=== PATIENT | male | born 1945 | race Caucasian/White ===

== ENCOUNTER 2021-09-12 17:44 | Outpatient (CLI) | payer MEDICARE | END 2021-09-12 17:45 | disposition short-term general hospital (02) | LOC: EMS 17:44 | DX: K92.0 Hematemesis (principal); R10.9 Unspecified abdominal pain; R53.1 Weakness | CPT/HCPCS: A0425; A0427 ==

== ENCOUNTER 2021-09-20 16:53 | Outpatient (CLI) | payer MEDICARE ==
[2021-09-20 17:15] LABS: BASOPHILS % (AUTO) 0.6 %; EOSINOPHILS # (AUTO) 0.1 10^3/uL (0.0-0.7); EOSINOPHILS % (AUTO) 0.8 %; HCT - HEMATOCRIT 23.5 % (42.0-52.0); HGB - HEMOGLOBIN 7.8 g/dL (14.0-18.0); LYMPHOCYTES # (AUTO) 1.3 10^3/uL (1.5-3.5); LYMPHOCYTES % (AUTO) 19.4 %; MEAN CORPUSCULAR HEMOGLOBIN 30.2 pg (27.0-31.0); MEAN CORPUSCULAR HGB CONC 33.2 g/dL (32.0-36.0); MEAN CORPUSCULAR VOLUME 91.1 fL (80.0-94.0); MEAN PLATELET VOLUME 8.7 fL (7.4-11.4); MONOCYTES # (AUTO) 0.5 10^3/uL (0.0-1.0); MONOCYTES % (AUTO) 8.2 %; NEUTROPHILS # (AUTO) 4.6 10^3/uL (1.5-6.6); NEUTROPHILS % (AUTO) 70.2 %; PLT - PLATELET COUNT 233 10^3/uL (130-450); RED BLOOD COUNT 2.58 10^6/uL (4.70-6.10); RED CELL DISTRIBUTION WIDTH 12.6 % (12.0-15.0); WHITE BLOOD COUNT 6.6 x10^3/uL (4.8-10.8)
== END 2021-09-20 16:54 | disposition home or self-care (01) ==
LOC: LAB 16:53
PROVIDERS: ATTEND Internal Medicine Transplant Hepatology
DX: K92.1 Melena (principal)
CPT/HCPCS: 36415; 85025

== ENCOUNTER 2021-10-06 08:02 | Outpatient (CLI) | payer MEDICARE ==
[2021-10-06 14:54] LABS: % IRON SATURATION 6 % (20-50); IRON 23 ug/dL (45-182); TOTAL IRON BINDING CAPACITY 393 ug/dL (250-450); TRANSFERRIN 281 mg/dL (180-329)
== END 2021-10-06 08:03 | disposition home or self-care (01) ==
LOC: LAB.S 08:02
PROVIDERS: ATTEND Internal Medicine Transplant Hepatology
DX: D64.9 Anemia, unspecified (principal)
CPT/HCPCS: 36415; 83540; 84466; 85025

== ENCOUNTER 2021-10-11 13:31 | Outpatient (CLI) | payer MEDICARE ==
[2021-10-11 19:54] LABS: BASOPHILS % (AUTO) 0.7 %; EOSINOPHILS # (AUTO) 0.1 10^3/uL (0.0-0.7); EOSINOPHILS % (AUTO) 1.8 %; HCT - HEMATOCRIT 29.2 % (42.0-52.0); HGB - HEMOGLOBIN 9.3 g/dL (14.0-18.0); LYMPHOCYTES # (AUTO) 1.1 10^3/uL (1.5-3.5); LYMPHOCYTES % (AUTO) 20.4 %; MEAN CORPUSCULAR HEMOGLOBIN 29.7 pg (27.0-31.0); MEAN CORPUSCULAR HGB CONC 31.8 g/dL (32.0-36.0); MEAN CORPUSCULAR VOLUME 93.3 fL (80.0-94.0); MEAN PLATELET VOLUME 10.2 fL (7.4-11.4); MONOCYTES # (AUTO) 0.6 10^3/uL (0.0-1.0); MONOCYTES % (AUTO) 10.7 %; NEUTROPHILS # (AUTO) 3.6 10^3/uL (1.5-6.6); PLT - PLATELET COUNT 147 10^3/uL (130-450); RED BLOOD COUNT 3.13 10^6/uL (4.70-6.10); RED CELL DISTRIBUTION WIDTH 13.8 % (12.0-15.0); WHITE BLOOD COUNT 5.4 x10^3/uL (4.8-10.8)
== END 2021-10-11 13:32 | disposition home or self-care (01) ==
LOC: LAB.S 13:31
PROVIDERS: ATTEND Internal Medicine Transplant Hepatology
DX: D64.9 Anemia, unspecified (principal)
CPT/HCPCS: 36415; 85025

== ENCOUNTER 2021-10-16 09:20 | Outpatient (CLI) | payer MEDICARE ==
[2021-10-16 14:58] LABS: ALBUMIN 3.8 g/dL (3.2-5.5); ALBUMIN/GLOBULIN RATIO 1.4 (1.0-2.2); ALKALINE PHOSPHATASE 47 IU/L (42-121); ALT ALANINE AMINOTRANSFERASE 38 IU/L (10-60); AST ASPARTATE AMINOTRANSFERASE 32 IU/L (10-42); BILIRUBIN,TOTAL 0.5 mg/dL (0.2-1.0); BUN - BLOOD UREA NITROGEN 25 mg/dL (6-20); CALCIUM 9.2 mg/dL (8.5-10.3); CARBON DIOXIDE - CO2 26 mmol/L (21-32); CHLORIDE 106 mmol/L (101-111); CHOL/HDL RATIO 1.9 (<5.0); CHOLESTEROL 107 mg/dL; CREATININE 1.8 mg/dL (0.6-1.2); GFR - MDRD 37 (>89); GLUCOSE 123 mg/dL (70-100); HDL CHOLESTEROL 56 mg/dL; LDL CHOLESTEROL,CALCULATED 42 mg/dL; LDL/HDL RATIO 0.8 (<3.6); POTASSIUM 4.5 mmol/L (3.5-5.0); SODIUM 138 mmol/L (135-145); TOTAL PROTEIN 6.5 g/dL (6.7-8.2); TRIGLYCERIDES 43 mg/dL; VLDL CHOLESTEROL 9 mg/dL
[2021-10-16 15:17] LABS: CREATININE,URINE 113.9 mg/dL; MICROALBUM/CREATININE RATIO,UR 20.2 ug/mg (<30.0); MICROALBUMIN,URINE 2.3 mg/dL (0-300.0)
[2021-10-16 20:14] LABS: ESTIMATED AVERAGE GLUCOSE 120 mg/dL (70-100); HEMOGLOBIN A1c% 5.8 % (4.27-6.07)
== END 2021-10-16 09:21 | disposition home or self-care (01) ==
LOC: LAB.S 09:20
PROVIDERS: ATTEND Internal Medicine
DX: E11.649 Type 2 diabetes mellitus with hypoglycemia without coma (principal); E11.42 Type 2 diabetes mellitus with diabetic polyneuropathy; Z79.4 Long term (current) use of insulin
CPT/HCPCS: 36415; 80053; 80061; 82043; 82570; 83036; 83721

== ENCOUNTER 2021-12-18 10:52 | Outpatient (CLI) | payer MEDICARE ==
[2021-12-18 15:09] LABS: % IRON SATURATION 65 % (20-50); IRON 282 ug/dL (45-182); TOTAL IRON BINDING CAPACITY 437 ug/dL (250-450); TRANSFERRIN 312 mg/dL (180-329)
== END 2021-12-18 10:53 | disposition home or self-care (01) ==
LOC: LAB.S 10:52
PROVIDERS: ATTEND Internal Medicine Gastroenterology
DX: D50.8 Other iron deficiency anemias (principal)
CPT/HCPCS: 36415; 83540; 84466

== ENCOUNTER 2021-12-21 09:18 | Outpatient (CLI) | payer MEDICARE ==
[2021-12-21 14:12] LABS: BASOPHILS # (AUTO) 0.1 10^3/uL (0.0-0.1); EOSINOPHILS # (AUTO) 0.1 10^3/uL (0.0-0.7); EOSINOPHILS % (AUTO) 1.6 %; HCT - HEMATOCRIT 38.7 % (42.0-52.0); LYMPHOCYTES % (AUTO) 12.9 %; MEAN CORPUSCULAR HEMOGLOBIN 27.6 pg (27.0-31.0); MEAN PLATELET VOLUME 10.9 fL (7.4-11.4); MONOCYTES # (AUTO) 0.6 10^3/uL (0.0-1.0); MONOCYTES % (AUTO) 8.7 %; NEUTROPHILS # (AUTO) 5.6 10^3/uL (1.5-6.6); NEUTROPHILS % (AUTO) 75.5 %; PLT - PLATELET COUNT 180 10^3/uL (130-450); RED BLOOD COUNT 4.35 10^6/uL (4.70-6.10); RED CELL DISTRIBUTION WIDTH 14.4 % (12.0-15.0); WHITE BLOOD COUNT 7.4 x10^3/uL (4.8-10.8)
== END 2021-12-21 09:19 | disposition home or self-care (01) ==
LOC: LAB.S 09:18
PROVIDERS: ATTEND Internal Medicine Gastroenterology
DX: D50.8 Other iron deficiency anemias (principal)
CPT/HCPCS: 36415; 85025

== ENCOUNTER 2022-05-25 09:21 | Emergency (ER) | payer MEDICARE ==
--- NOTE | 2022-05-25 09:34 | ED Physician Documentation ---
PD HPI DYSPNEA - Stated complaint Stated Complaint: SOA/SWELLING - History obtained from History obtained from: Patient - History of Present Illness Timing - onset: How many months ago (few months of fatigue and GREEN, orthopnea. No chest pain. Seen by his firer helper ear this week and rx torsemide diuretic. He had not been on diuretics previously. Had not noted any improvement as yet, with 2 days of the oral diuretic.) Timing - duration: Weeks Timing - details: Gradual onset, Still present Inciting event(s): No: URI, Immobilization/travel Improved by: Inhaler/neb, Rest Worsened by: Laying flat, Coughing Associated symptoms: Cough, Chest pain / discomfort, Bilateral edema. No: Fever, Hemoptysis, Wheezing Similar symptoms before: Has not had sx before Recently seen: Clinic Review of Systems Constitutional: denies: Fever, Chills Nose: denies: Rhinorrhea / runny nose, Congestion Throat: denies: Sore throat Respiratory: denies: Cough GI: denies: Vomiting, Diarrhea, Hematemesis, Bloody / black stool : denies: Dysuria Skin: denies: Rash Musculoskeletal: reports: Extremity swelling Neurologic: reports: Generalized weakness PD PAST MEDICAL HISTORY - Past Medical History Cardiovascular: Hypertension, Valve disorder Respiratory: None Neuro: None Endocrine/Autoimmune: None - Present Medications Home Medications: Ambulatory Orders Medication Instructions Recorded Confirmed Apixaban [Eliquis] 5 mg PO DAILY PM 05/25/22 05/25/22 Aspirin [Cochise Aspirin] 81 mg PO DAILY PM 05/25/22 05/25/22 Calcium Carbonate/Vitamin D3 05/25/22 [Calcium 500 mg Chewable Tablet] Docusate Sodium 100Mg Capsule 05/25/22 [Colace 100Mg Capsule] Dulaglutide [Trulicity] 05/25/22 Furosemide [Lasix] 40 mg PO DAILY PM 05/25/22 05/25/22 Latanoprost/Pf [Latanoprost 0.005% 05/25/22 Eye Drop] Lifitegrast [Xiidra] 05/25/22 Metoprolol Succinate [Toprol Xl] 1 tab PO DAILY 05/25/22 05/25/22 Pantoprazole Sodium [Protonix] 40 05/25/22 Ranolazine [Ranexa] 1 tab PO BID 05/25/22 05/25/22 Rosuvastatin Calcium [Crestor] 05/25/22 - Allergies Allergies/Adverse Reactions: Allergies Allergy/AdvReac Type Severity Reaction Status Date / Time No Known Drug Allergies Allergy Verified 05/25/22 09:38 PD ED PE NORMAL - Vitals Vital signs reviewed: Yes - General General: Alert and oriented X 3, Well developed/nourished - Neck Neck: Supple, no meningeal sign, No adenopathy - Cardiac Cardiac: RRR, Other (2/6 murmur left chest radiating to right chest. ) - Respiratory Respiratory: No: Clear bilaterally (fine crackles at lower 1/3 both lung fileds. ) - Abdomen Abdomen: Soft, Non tender - Derm Derm: Normal color, Warm and dry - Extremities Extremities: No calf tenderness / cord, Other (2+ edema in both lower legs up to the knees. ) - Neuro Neuro: Alert and oriented X 3, No motor deficit, Normal speech Results - Vitals Vitals: Vital Signs - 24 hr 05/25/22 05/25/22 05/25/22 09:35 09:49 10:22 Heart Rate 84 86 80 Respiratory 22 24 Rate Blood Pressure 108/83 H 108/83 H 113/89 H O2 Saturation 100 99 98 05/25/22 13:08 Heart Rate 86 Respiratory 27 H Rate Blood Pressure 115/92 H O2 Saturation 100 Oxygen O2 Source Room air - EKG (time done) 09:35 EKG releavant findings:: EKG personally interpreted by author of this note. Relevant findings are: Rate: Rate (enter#) (86) Rhythm: NSR [place]: Normal Ischemia: Normal ST segments, Q waves (anterior leads). No: ST elevation c/w ischemia, ST depression - Labs Labs: Laboratory Tests 05/25/22 05/25/22 05/25/22 10:15 10:15 10:15 WBC 10.0 RBC 3.89 L Hgb 10.6 L Hct 33.5 L MCV 86.1 MCH 27.2 MCHC 31.6 L RDW 15.9 H Plt Count 292 MPV 10.2 Neut # (Auto) 8.4 H Lymph # (Auto) 0.7 L [place] # (Auto) 0.8 Eos # (Auto) 0.0 Baso # (Auto) 0.1 Absolute Nucleated RBC 0.00 Nucleated RBC % 0.0 Sodium 134 L Potassium 3.9 Chloride 95 L Carbon Dioxide 25 Anion Gap 14.0 H BUN 48 H Creatinine 2.3 H Estimated GFR (MDRD) 28 L Glucose 186 H Calcium 9.0 Magnesium 2.1 Total Bilirubin 1.1 H AST 69 H ALT 76 H Alkaline Phosphatase 85 B-Natriuretic Peptide 4555 H Total Protein 6.5 L Albumin 3.1 L Globulin 3.4 Albumin/Globulin Ratio 0.9 L Lipase 41 Urine Color Urine Clarity Urine pH Ur Specific [place] Urine Protein Urine Glucose (UA) Urine Ketones Urine Occult Blood Urine Nitrite Urine Bilirubin Urine Urobilinogen Ur Leukocyte Esterase Ur Microscopic Review Urine Culture Comments 05/25/22 11:10 WBC RBC Hgb Hct MCV MCH MCHC RDW Plt Count MPV Neut # (Auto) Lymph # (Auto) [place] # (Auto) Eos # (Auto) Baso # (Auto) Absolute Nucleated RBC Nucleated RBC % Sodium Potassium Chloride Carbon Dioxide Anion Gap BUN Creatinine Estimated GFR (MDRD) Glucose Calcium Magnesium Total Bilirubin AST ALT Alkaline Phosphatase B-Natriuretic Peptide Total Protein Albumin Globulin Albumin/Globulin Ratio Lipase Urine Color YELLOW Urine Clarity CLEAR Urine pH 6.0 Ur Specific [place] 1.010 Urine Protein NEGATIVE Urine Glucose (UA) NEGATIVE Urine Ketones NEGATIVE Urine Occult Blood NEGATIVE Urine Nitrite NEGATIVE Urine Bilirubin NEGATIVE Urine Urobilinogen 0.2 (NORMAL) Ur Leukocyte Esterase NEGATIVE Ur Microscopic Review NOT INDICATED Urine Culture Comments NOT INDICATED - Rads (name of study) chest xray Relevant Findings:: Prelim report reviewed, EMP independent interpretation of test (prominentvascularature with some interstitial changes. No effusions nor infiltrates. ), See rad report PD Medical Decision Making - ED course Complexity details: re-evaluated patient, considered differential (having GREEN, orthopnea, edema in legs and fatigue progressive over past few weeks. seen by Physician Practice Coordinator at [facility] and was started on torsemide few days ago without much improvement. No chest pain. ), d/w patient Reviewed Lab Results: creatinine 2.3 with prior few being 1.8-2.0, so is mildly elevated from prior one. BNP is very elevated at 4555, without prior comparisons. Potassium and mag are in normal range. H/H is good without anemia. Social Determinants of Health: has aortic regurg and is scheduled for open heart valve replacement on June 27 at [facility]. He and family hoping to improve enough and continue well enough until that time. Prefer not hospitalization. Drug Therapy Requiring Monitoring for Toxicity: given IV Bumex 2 mg, with subsequent output of over 600 ml urine. He states he is feeling much better with that already. Sats are good and he felt comfortable walking to the bathroom in ER. He would like to try going home and family supportive. Departure - Departure Disposition: Home, Self Care Clinical Impression: Acute exacerbation of congestive heart failure Qualifiers: Heart failure type: unspecified Qualified Code(s): I50.9 - Heart failure, unspecified Aortic regurgitation Qualifiers: Cardiac valve disease etiology: etiology unspecified Qualified Code(s): I35.1 - Nonrheumatic aortic (valve) insufficiency Condition: Stable Record reviewed to determine appropriate education?: Yes Instructions: ED CHF General Follow-Up: DIONNA SAXENA MD [Primary Care Provider] - Comments: It is good that you are feeling better after some diuresing of fluid. I would still suggest you take your oral diuretic dose later this afternoon to keep the diuresis going. Tomorrow do the doubled dose of the torsemide with a initial dose in the morning and then a second dose around lunchtime and do that over the next several days. Your electrolytes were reviewed reasonable here. Continue with your other usual medicines. I would suggest following up with your firer helper or primary care early next week for reevaluation and also to recheck your chemistry panel to make sure your electrolytes and kidney function are no worse. Your creatinine/kidney function test is slightly higher than your prior ones here (2.3 today, prior being 2.0, 1.9). Want to ensure that isn't worsening with the diuretic usage. Discharge Date/Time: 05/25/22 13:21
[2022-05-25] MEDS ORDERED: BUMETANIDE 1 MG/4 ML VIAL IVP STA (09:56)
--- NOTE | 2022-05-25 10:10 | XRAY Report ---
PROCEDURE: Chest 1 View X-Ray INDICATIONS: Chest pain TECHNIQUE: One view of the chest was acquired. COMPARISON: None. FINDINGS: Surgical changes and devices: None. Lungs and pleura: No significant pleural effusions. No pneumothorax. Prominent pulmonary markings. Mediastinum: Mediastinal contours appear normal. Heart size is within normal limits. Bones and chest wall: No suspicious bony lesions. Overlying soft tissues appear unremarkable. IMPRESSION: Prominent pulmonary markings. Finding could be due to pulmonary vasculature engorgement. Reviewed by: Cody Ro MD on 05/25/2022 10:08 AM [facility] Approved by: Cody Ro MD on 05/25/2022 10:08 AM [facility] Station ID: [id number]
--- OUTSIDE RECORDS SUMMARY | 2022-05-25 10:12 | EXTERNAL MEDICAL SUMMARY RPT | Continuity of Care Document ---
:1945 Author Organization [facility] Address [address] [place] [address] Phone Care Team Providers Name Role Phone Unavailable Unavailable Unavailable Scott Mathew, Tiffany Unavailable Unavailable Mattie Patient Registrar, Sepideh Unavailable Unav ailable Allergies No information. Encounters No information. Functional Status No information. Immunizations No information. Medications date description facility 2022-04-02 00:00 dulaglutide [facility] 2022-04-02 00:00 dulaglutide Walk[facility] 2022-04-04 00:00 dulaglutide [facility] [place] 2022-04-02 00:00 apixaban [facility] 2022-04-02 00:00 apixaban [facility] 2022-04-04 00:00 apixaban [facility] 2022-04-02 00:00 insulin glargine u-300 conc [facility] [place] 2022-04-02 00:00 insulin glargine u-300 conc Walk[facility]In [facility] in [facility] 2022-04-04 00:00 insulin glargine u-300 conc Walk[facility]In [facility] 2022-04-02 00:00 metoprolol succinate [facility] [place] 2022-04-02 00:00 metoprolol succinate [facility] [place] 2022-04-04 00:00 metoprolol succinate [facility] [place] 2022-04-02 00:00 ranolazine [facility] [place] 2022-04-02 00:00 ranolazine [facility] [facility] [place] 2022-04-04 00:00 ranolazine [facility] [place] [facility] [place] 2022-04-02 00:00 azilsartan med-chlorthalidone [facility] [place] 2022-04-02 00:00 azilsartan med-chlorthalidone [facility] [place] 2022-04-04 00:00 azilsartan med-chlorthalidone [facility] [place] 2022-04-02 00:00 apixaban [facility] [place] [facility] [place] 2022-04-02 00:00 [facility] [place] 2022-04-04 00:00 apixaban [facility] [place] [facility] [place] 2022-04-02 00:00 dulaglutide [facility] [place] [facility] [place] 2022-04-02 00:00 dulaglutide [facility] [place] [facility] [place] 2022-04-04 00:00 dulaglutide [facility] [place] [facility] [place] 2022-04-02 00:00 insulin glargine u-300 conc [facility] [place] 2022-04-02 00:00 insulin glargine u-300 conc [facility] [place] 2022-04-04 00:00 insulin glargine u-300 conc [facility] [place] 2022-04-02 00:00 azilsartan med-chlorthalidone [facility] [place] 2022-04-02 00:00 azilsartan med-chlorthalidone [facility] [place] 2022-04-04 00:00 azilsartan med-chlorthalidone [facility] [place] 2022-04-02 00:00 apixaban [facility] [place] 2022-04-02 00:00 apixaban [facility] [place] 2022-04-04 00:00 apixaban [facility] [place] 2022-04-02 00:00 dulaglutide [facility] [place] [facility] [place] 2022-04-02 00:00 dulaglutide [facility] [place] 2022-04-04 00:00 dulaglutide [facility] [place] 2022-04-02 00:00 insulin glargine u-300 conc [facility] [place] 2022-04-02 00:00 insulin glargine u-300 conc [facility] [place] 2022-04-04 00:00 insulin glargine u-300 conc [facility] [place] 2022-04-02 00:00 blood sugar diagnostic [facility] [place] 2022-04-02 00:00 blood sugar diagnostic [facility] [place] 2022-04-04 00:00 blood sugar diagnostic [facility] [place] 2022-04-02 00:00 insulin glargine u-300 conc [facility] [place] 2022-04-02 00:00 insulin glargine u-300 conc [facility] [place] 2022-04-04 00:00 insulin glargine u-300 conc [facility] [place] 2022-04-02 00:00 dulaglutide [facility] [place] [facility] [place] 2022-04-02 00:00 dulaglutide [facility] [place] [facility] [place] 2022-04-04 00:00 dulaglutide [facility] [place] [facility] [place] 2022-04-02 00:00 metformin [facility] [place] 2022-04-02 00:00 metformin [facility] [place] 2022-04-04 00:00 metformin [facility] [place] 2022-04-02 00:00 latanoprost [facility] [place] 2022-04-02 00:00 latanoprost [facility] [place] 2022-04-04 00:00 latanoprost [facility] [place] 2022-04-02 00:00 pantoprazole [facility] [place] 2022-04-02 00:00 pantoprazole [facility] [place] 2022-04-04 00:00 pantoprazole [facility] [place] 2022-04-02 00:00 ranolazine [facility] [place] 2022-04-02 00:00 ranolazine [facility] [place] 2022-04-04 00:00 ranolazine [facility] [place] 2022-04-02 00:00 metoprolol succinate [facility] [place] 2022-04-02 00:00 metoprolol succinate [facility] [place] 2022-04-04 00:00 metoprolol succinate [facility] [place] 2022-04-02 00:00 metoprolol tartrate Walk[facility]In [facility] [place] 2022-04-02 00:00 metoprolol tartrate Walk[facility] [place] 2022-04-04 00:00 metoprolol tartrate [facility] [place] 2022-04-02 00:00 ezetimibe [facility] [place] 2022-04-02 00:00 ezetimibe [facility] [place] 2022-04-04 00:00 ezetimibe [facility] [place] 2022-04-02 00:00 azilsartan med-chlorthalidone [facility] [place] 2022-04-02 00:00 azilsartan med-chlorthalidone [facility] [place] 2022-04-04 00:00 azilsartan med-chlorthalidone [facility] [place] 2022-04-02 00:00 ezetimibe [facility] [place] 2022-04-02 00:00 ezetimibe [facility] [place] 2022-04-04 00:00 ezetimibe [facility] [place] 2022-04-02 00:00 rosuvastatin [facility] [place] 2022-04-02 00:00 rosuvastatin [facility] [place] 2022-04-04 00:00 rosuvastatin [facility] [place] 2022-04-02 00:00 ranolazine [facility] [place] 2022-04-02 00:00 ranolazine [facility] [place] 2022-04-04 00:00 ranolazine [facility] [place] 2022-04-02 00:00 latanoprost [facility] [place] 2022-04-02 00:00 latanoprost [facility] [place] 2022-04-04 00:00 latanoprost [facility] [place] 2022-04-02 00:00 pantoprazole [facility] [place] 2022-04-02 00:00 pantoprazole [facility] [place] 2022-04-04 00:00 pantoprazole [facility] [place] 2022-04-02 00:00 lancets [facility] [place] 2022-04-02 00:00 lancets [facility] [place] 2022-04-04 00:00 lancets [facility] [place] 2022-04-02 00:00 lancets [facility] [place] 2022-04-02 00:00 lancets [facility] [place] 2022-04-04 00:00 lancets [facility] [place] 2022-04-02 00:00 metoprolol tartrate Walk[facility]In [facility] [place] 2022-04-02 00:00 metoprolol tartrate [facility] [place] 2022-04-04 00:00 metoprolol tartrate [facility] [place] 2022-04-02 00:00 azilsartan med-chlorthalidone [facility] [place] 2022-04-02 00:00 azilsartan med-chlorthalidone [facility] [place] 2022-04-04 00:00 azilsartan med-chlorthalidone [facility] [place] 2022-04-02 00:00 brimonidine [facility] [place] 2022-04-02 00:00 brimonidine [facility] [place] 2022-04-04 00:00 brimonidine [facility] [place] 2022-04-02 00:00 latanoprost [facility] [place] 2022-04-02 00:00 latanoprost [facility] [place] 2022-04-04 00:00 latanoprost [facility] [place] 2022-04-02 00:00 pantoprazole [facility] [place] 2022-04-02 00:00 pantoprazole [facility] [place] 2022-04-04 00:00 pantoprazole [facility] [place] 2022-04-02 00:00 ranolazine [facility] [place] 2022-04-02 00:00 ranolazine [facility] [place] 2022-04-04 00:00 ranolazine [facility] [place] 2022-04-02 00:00 metformin [facility] [place] 2022-04-02 00:00 metformin [facility] [place] 2022-04-04 00:00 metformin [facility] [place] 2022-04-02 00:00 pantoprazole [facility] [place] 2022-04-02 00:00 pantoprazole [facility] [place] 2022-04-04 00:00 pantoprazole [facility] [place] 2022-04-02 00:00 blood sugar diagnostic [facility] 2022-04-02 00:00 blood sugar diagnostic [facility] [place] 2022-04-04 00:00 blood sugar diagnostic [facility] [place] 2022-04-02 00:00 metformin [facility] [place] 2022-04-02 00:00 metformin [facility] [place] 2022-04-04 00:00 metformin [facility] [place] 2022-04-02 00:00 rosuvastatin [facility] [place] 2022-04-02 00:00 rosuvastatin [facility] [place] 2022-04-04 00:00 rosuvastatin [facility] [place] 2022-04-02 00:00 ezetimibe [facility] [place] 2022-04-02 00:00 ezetimibe [facility] [place] 2022-04-04 00:00 ezetimibe [facility] [place] 2022-04-02 00:00 metoprolol succinate [facility] [place] 2022-04-02 00:00 metoprolol succinate [facility] [place] 2022-04-04 00:00 metoprolol succinate [facility] [place] 2022-04-02 00:00 brimonidine [facility] [place] 2022-04-02 00:00 brimonidine [facility] [place] 2022-04-04 00:00 brimonidine [facility] [place] 2022-04-02 00:00 metoprolol tartrate Walk[facility] [place] 2022-04-02 00:00 metoprolol tartrate [facility] [place] 2022-04-04 00:00 metoprolol tartrate [facility] [place] 2022-04-02 00:00 ezetimibe [facility] [place] 2022-04-02 00:00 ezetimibe [facility] [place] 2022-04-04 00:00 ezetimibe [facility] [place] 2022-04-02 00:00 rosuvastatin [facility] [place] 2022-04-02 00:00 rosuvastatin [facility] [place] 2022-04-04 00:00 rosuvastatin [facility] [place] 2022-04-02 00:00 apixaban [facility] [place] 2022-04-02 00:00 apixaban [facility] [place] 2022-04-04 00:00 apixaban [facility] [place] 2022-04-02 00:00 rosuvastatin [facility] [place] 2022-04-02 00:00 rosuvastatin [facility] [place] 2022-04-04 00:00 rosuvastatin [facility] [place] 2022-04-02 00:00 metformin [facility] [place] 2022-04-02 00:00 metformin [facility] [place] 2022-04-04 00:00 metformin [facility] [place] 2022-04-02 00:00 brimonidine [facility] [place] 2022-04-02 00:00 brimonidine [facility] [place] 2022-04-04 00:00 brimonidine [facility] [place] 2022-04-02 00:00 latanoprost [facility] [place] 2022-04-02 00:00 latanoprost [facility] [place] 2022-04-04 00:00 latanoprost [facility] [place] 2022-04-02 00:00 brimonidine [facility] [place] 2022-04-02 00:00 brimonidine [facility] [place] 2022-04-04 00:00 brimonidine [facility] [place] 2022-04-02 00:00 metoprolol succinate [facility] 2022-04-02 00:00 metoprolol succinate [facility] [place] 2022-04-04 00:00 metoprolol succinate [facility] [place] 2022-04-02 00:00 metoprolol tartrate Walk[facility] 2022-04-02 00:00 metoprolol tartrate [facility] [place] 2022-04-04 00:00 metoprolol tartrate [facility] [place] 2022-04-02 00:00 blood sugar diagnostic [facility] [place] 2022-04-02 00:00 blood sugar diagnostic [facility] [place] 2022-04-04 00:00 blood sugar diagnostic [facility] 2022-04-02 00:00 lancets [facility] [place] 2022-04-02 00:00 lancets [facility] [place] 2022-04-04 00:00 lancets [facility] [place] Problems date description facility 2022-04-02 00:00 Dyspnea [facility] [place] 2022-04-02 00:00 Dyspnea [facility] 2022-04-02 00:00 Irregular heart beat [facility] [place] 2022-04-02 00:00 Irregular heart beat [facility] 2022-04-02 00:00 Cardiac dysrhythmia, unspecified [facility] 2022-04-02 00:00 Cardiac dysrhythmia, unspecified [facility] 2022-04-02 00:00 Cardiac arrhythmia, unspecified [facility] 2022-04-02 00:00 Cardiac arrhythmia, unspecified [facility] [place] 2022-04-02 00:00 Shortness of breath [facility] [place] 2022-04-02 00:00 Shortness of breath [facility] [place] Procedures date description facility 2022-04-02 00:00 Visit Code Hold [facility] [place] 2022-04-02 00:00 Visit Code Hold [facility] [place] 2022-04-02 00:00 EKG Office Complete [facility] [place] 2022-04-02 00:00 EKG Office Complete [facility] [place] Results/Labs No information. Social History date description facility 2022-04-02 00:00 Former smoker Walk[facility] [place] 2022-04-02 00:00 Former smoker [facility] [place] Vital Signs date measurement value units 2022-04-02 00:00 BMI 23.83 kg/m2 2022-04-02 00:00 BP_diastolic 82 mmHg 2022-04-02 00:00 BP_systolic 127 mmHg 2022-04-02 00:00 heart_rate 109 /min 2022-04-02 00:00 height_metric 185.42 cm 2022-04-02 00:00 height_standard 73 in 2022-04-02 00:00 respiration_rate 16 /min 2022-04-02 00:00 temperature_metric 36.17 C 2022-04-02 00:00 temperature_standard 97.1 F 2022-04-02 00:00 weight_metric 81.65 kg 2022-04-02 00:00 weight_standard 180 lb
[2022-05-25] MEDS ORDERED: BUMETANIDE 1 MG/4 ML VIAL ONE (10:14)
[2022-05-25 10:30] LABS: BASOPHILS # (AUTO) 0.1 10^3/uL (0.0-0.1); BASOPHILS % (AUTO) 0.5 %; EOSINOPHILS % (AUTO) 0.3 %; HCT - HEMATOCRIT 33.5 % (42.0-52.0); HGB - HEMOGLOBIN 10.6 g/dL (14.0-18.0); LYMPHOCYTES # (AUTO) 0.7 10^3/uL (1.5-3.5); LYMPHOCYTES % (AUTO) 6.7 %; MEAN CORPUSCULAR HEMOGLOBIN 27.2 pg (27.0-31.0); MEAN CORPUSCULAR HGB CONC 31.6 g/dL (32.0-36.0); MEAN CORPUSCULAR VOLUME 86.1 fL (80.0-94.0); MEAN PLATELET VOLUME 10.2 fL (7.4-11.4); MONOCYTES # (AUTO) 0.8 10^3/uL (0.0-1.0); MONOCYTES % (AUTO) 8.1 %; NEUTROPHILS # (AUTO) 8.4 10^3/uL (1.5-6.6); PLT - PLATELET COUNT 292 10^3/uL (130-450); RED BLOOD COUNT 3.89 10^6/uL (4.70-6.10); RED CELL DISTRIBUTION WIDTH 15.9 % (12.0-15.0)
[2022-05-25 10:49] LABS: ALBUMIN 3.1 g/dL (3.2-5.5); ALBUMIN/GLOBULIN RATIO 0.9 (1.0-2.2); BILIRUBIN,TOTAL 1.1 mg/dL (0.2-1.0); CREATININE 2.3 mg/dL (0.6-1.2); MAGNESIUM 2.1 mg/dL (1.7-2.8); POTASSIUM 3.9 mmol/L (3.5-5.0); TOTAL PROTEIN 6.5 g/dL (6.7-8.2)
[2022-05-25 11:44] LABS: BILIRUBIN,URINE NEGATIVE (NEGATIVE); GLUCOSE, URINE (UA) NEGATIVE (NEGATIVE); KETONES,URINE (UA) NEGATIVE (NEGATIVE); LEUKOCYTE ESTERASE, URINE NEGATIVE (NEGATIVE); NITRITE,URINE NEGATIVE (NEGATIVE); OCCULT BLOOD,URINE NEGATIVE (NEGATIVE); PROTEIN,URINE NEGATIVE (NEGATIVE); UROBILINOGEN,URINE 0.2 (NORMAL) E.U./dL (NORMAL)
[2022-05-25 11:48] LABS: CLARITY,URINE CLEAR (CLEAR)
[2022-05-25 13:09] VITALS: BP 115/92
== END 2022-05-25 13:21 | disposition home or self-care (01) ==
LOC: ED 09:21
DX: I11.0 Hypertensive heart disease with heart failure (principal); I50.9 Heart failure, unspecified; I35.1 Nonrheumatic aortic (valve) insufficiency; Z79.01 Long term (current) use of anticoagulants; Z79.899 Other long term (current) drug therapy; Z79.82 Long term (current) use of aspirin
CPT/HCPCS: 36415; 80053; 81001; 81003; 83690; 83735; 83880; 84484; 85025; 87086; 93005; 96374; 99284

== ENCOUNTER 2022-05-27 16:06 | Emergency (ER) | payer MEDICARE ==
--- OUTSIDE RECORDS SUMMARY | 2022-05-27 16:22 | EXTERNAL MEDICAL SUMMARY RPT | Continuity of Care Document ---
:1945 Author Organization [facility] Address [address] [place] [address] Phone Care Team Providers Name Role Phone Unavailable Unavailable Unavailable Scott Mathew, Tiffany Unavailable Unavailable Mattie Patient RegistrarSepideh Unavailable Unav ailable Allergies No information. Encounters No information. Functional Status No information. Immunizations No information. Medications date description facility 2022-04-02 00:00 dulaglutide [facility] 2022-04-02 00:00 dulaglutide [facility] 2022-04-04 00:00 dulaglutide [facility] 2022-04-02 00:00 apixaban [facility] 2022-04-02 00:00 apixaban [facility] 2022-04-04 00:00 apixaban [facility] 2022-04-02 00:00 insulin glargine u-300 conc [facility] 2022-04-02 00:00 insulin glargine u-300 conc [facility] 2022-04-04 00:00 insulin glargine u-300 conc [facility]ic [facility] 2022-04-02 00:00 metoprolol succinate [facility] 2022-04-02 00:00 metoprolol succinate [facility] 2022-04-04 00:00 metoprolol succinate [facility] 2022-04-02 00:00 ranolazine [facility] 2022-04-02 00:00 ranolazine [facility] [...] [place] 2022-04-04 00:00 apixaban [facility] [place] [facility] [place] 2022-04-02 00:00 dulaglutide [facility] [place] [facility] [place] 2022-04-02 00:00 dulaglutide [facility] [place] [facility] [place] 2022-04-04 00:00 dulaglutide [facility] [place] [facility] [place] [...] [facility] [place] 2022-04-02 00:00 dulaglutide [facility] [place] [facility] [place] 2022-04-02 00:00 dulaglutide [facility] [place] [facility] [place] 2022-04-04 00:00 dulaglutide [facility] [place] [facility] [place] 2022-04-02 00:00 metformin [facility] [place] [facility] [place] [...] [place] 2022-04-02 00:00 metoprolol tartrate [facility] [place] 2022-04-02 00:00 metoprolol tartrate [facility] [place] 2022-04-04 00:00 metoprolol tartrate [facility] [place] 2022-04-02 [...] [place] 2022-04-02 00:00 metoprolol tartrate [facility] [place] 2022-04-02 00:00 metoprolol tartrate [facility] [place] 2022-04-04 00:00 metoprolol tartrate [facility] [place] 2022-04-02 [...] [place] 2022-04-02 00:00 metoprolol tartrate [facility] [place] 2022-04-02 00:00 metoprolol tartrate [facility] [place] 2022-04-04 00:00 metoprolol tartrate [facility] [place] 2022-04-02 [...] [place] 2022-04-02 00:00 metoprolol tartrate [facility] [place] 2022-04-02 00:00 metoprolol tartrate [facility] [place] 2022-04-04 00:00 metoprolol tartrate [facility] [place] 2022-04-02 00:00 blood sugar diagnostic [facility] [place] 2022-04-02 00:00 blood sugar diagnostic [facility] [place] 2022-04-04 00:00 blood sugar diagnostic [facility] [place] 2022-04-02 00:00 lancets [facility] [place] 2022-04-02 00:00 lancets [facility] [place] 2022-04-04 00:00 lancets [facility] [...] & [facility] [place] 2022-04-02 00:00 Cardiac dysrhythmia, unspecified [facility] [place] 2022-04-02 00:00 Cardiac dysrhythmia, unspecified [facility] [place] 2022-04-02 00:00 Cardiac arrhythmia, unspecified [facility] [place] 2022-04-02 00:00 Cardiac arrhythmia, unspecified [facility] [place] 2022-04-02 00:00 Shortness of breath [facility] [place] 2022-04-02 00:00 Shortness of breath [facility] [place] Procedures date description facility 2022-04-02 00:00 Visit Code Hold [facility] [place] 2022-04-02 00:00 Visit Code Hold [facility] [place] 2022-04-02 00:00 EKG Office Complete [facility] [place] 2022-04-02 00:00 EKG Office Complete [facility] [place] Results/Labs No information. Social History date description facility 2022-04-02 00:00 Former smoker [facility] [place] 2022-04-02 00:00 Former smoker [facility] [place] Vital Signs date measurement value units 2022-04-02 [...]
[2022-05-27 16:40] LABS: BASOPHILS % (AUTO) 0.2 %; HCT - HEMATOCRIT 35.7 % (42.0-52.0); HGB - HEMOGLOBIN 11.3 g/dL (14.0-18.0); LYMPHOCYTES % (AUTO) 1.5 %; MEAN CORPUSCULAR HEMOGLOBIN 27.1 pg (27.0-31.0); MEAN CORPUSCULAR HGB CONC 31.7 g/dL (32.0-36.0); MEAN CORPUSCULAR VOLUME 85.6 fL (80.0-94.0); MONOCYTES % (AUTO) 6.6 %; NEUTROPHILS % (AUTO) 90.9 %; PLT - PLATELET COUNT 313 10^3/uL (130-450); RED BLOOD COUNT 4.17 10^6/uL (4.70-6.10); RED CELL DISTRIBUTION WIDTH 15.7 % (12.0-15.0); WHITE BLOOD COUNT 22.1 x10^3/uL (4.8-10.8)
[2022-05-27 16:42] LABS: ABNORMAL LYMPHS % (MANUAL) 0 %
--- NOTE | 2022-05-27 16:47 | XRAY Report ---
PROCEDURE: Chest 1 View X-Ray INDICATIONS: Chest pain TECHNIQUE: One view of the chest was acquired. COMPARISON: None. FINDINGS: Surgical changes and devices: None. Lungs and pleura: Left upper lobe infiltrate. No pneumothorax. Blunting of the costophrenic angles b ilaterally consistent with small pleural effusions. Mediastinum: Mediastinal contours appear normal. Heart size is normal. Bones and chest wall: No suspicious bony lesions. Overlying soft tissues appear unremarkable. IMPRESSION: 1. Left upper lobe pneumonia. 2. Blunting of the costophrenic angles bilaterally consistent with small pleural effusions. Reviewed by: Anjel Hyman on 05/27/2022 3:46 PM YEYO Approved by: Anjel Hyman on 05/27/2022 3:46 PM AKDT Station ID: [id number]
[2022-05-27 17:01] LABS: ALBUMIN 3.1 g/dL (3.2-5.5); ALBUMIN/GLOBULIN RATIO 0.8 (1.0-2.2); BILIRUBIN,TOTAL 1.3 mg/dL (0.2-1.0); CALCIUM 8.7 mg/dL (8.5-10.3); CREATININE 2.4 mg/dL (0.6-1.2); POTASSIUM 3.2 mmol/L (3.5-5.0); TOTAL PROTEIN 6.9 g/dL (6.7-8.2)
[2022-05-27] MEDS ORDERED: HYDROmorphone 1 MG/ML CARPUJECT IVP STA (17:02)
[2022-05-27 17:04] LABS: BAND NEUTROPHILS % (MANUAL) 3 %; DIFFERENTIAL COMMENT MANUAL DIFFERENTIAL; LYMPHOCYTES # (MANUAL) 0.4 10^3/uL (1.5-3.5); LYMPHOCYTES % (MANUAL) 2 %; MONOCYTES # (MANUAL) 1.3 10^3/uL (0.0-1.0); NEUTROPHILS # (MANUAL) 20.3 10^3/uL (1.5-6.6); PLATELET ESTIMATE, MANUAL NORMAL (130-450,000) (NORMAL); PLATELET MORPHOLOGY NORMAL APPEARANCE (NORMAL); WBC MORPHOLOGY (MULTIPLE) 1+ TOXIC GRANULATION (NORMAL)
--- NOTE | 2022-05-27 17:04 | ED Physician Documentation ---
PD HPI DYSPNEA - Stated complaint Stated Complaint: SOA,COUGH,LT SHOULDER PX - Chief complaint Chief Complaint: Cardiac - History obtained from History obtained from: Patient - Additional information Additional information: 77-year-old gentleman with history of A-fib, aortic stenosis planned for open aortic valve replacements in the next 2 months. He has coronary disease with stenting and history of DC in 2002. He was seen by my partner 2 days ago for shortness of breath with pedal edema. His work-up demonstrated a normal white count, mild anemia which is chronic. He has slowly worsening renal insufficiency, on that date his creatinine was 2.3 and his BNP was 4555. Mild elevation in the transaminases which I assume is from congestive heart failure. He was diuresed with good effect. Today he has a cough, severe left shoulder pain with deep breathing or coughing, and worse shortness of breath. His pedal edema though is better. PD PAST MEDICAL HISTORY - Past Medical History Cardiovascular: Hypertension, Valve disorder Respiratory: None Neuro: None Endocrine/Autoimmune: None : Other - Past Surgical History Past Surgical History: Yes Cardiovascular: AAA - Present Medications Home Medications: Ambulatory Orders Medication Instructions Recorded Confirmed Apixaban [Eliquis] 5 mg PO BID 05/25/22 05/27/22 Aspirin [[place] Aspirin] 81 mg PO DAILY PM 05/25/22 05/27/22 Calcium Carbonate/Vitamin D3 1 tab PO DAILY 05/25/22 05/27/22 [Calcium 500 mg Chewable Tablet] Docusate Sodium 100Mg Capsule 100 mg PO BID 05/25/22 05/27/22 [Colace 100Mg Capsule] Dulaglutide [Trulicity] 1.5 mg SUBQ 05/25/22 Latanoprost/Pf [Latanoprost 0.005% 1 drops EACHEYE QPM 05/25/22 05/27/22 Eye Drop] Lifitegrast [Xiidra] 05/25/22 Pantoprazole Sodium [Protonix] 40 mg PO BID 05/25/22 05/27/22 Ranolazine [Ranexa] 1 tab PO BID 05/25/22 05/27/22 Rosuvastatin Calcium [Crestor] 10 mg PO DAILY 05/25/22 05/27/22 Brimonidine 0.15% Ophth Drops 1 drops EACHEYE BID 05/27/22 05/27/22 [Alphagan P 0.15% Ophth Drops] Ezetimibe [Zetia] 10 mg PO DAILY 05/27/22 05/27/22 Insulin Glargine,Hum.rec.anlog 14 unit SUBQ DAILY 05/27/22 05/27/22 [Toucrystal Solostar] Metoprolol Succinate [Toprol Xl] 25 mg PO DAILY 05/27/22 05/27/22 Torsemide 20 mg PO DAILY 05/27/22 05/27/22 - Allergies Allergies/Adverse Reactions: Allergies Allergy/AdvReac Type Severity Reaction Status Date / Time No Known Drug Allergies Allergy Verified 05/27/22 19:45 - Social History Does the pt smoke?: No Smoking Status: Never smoker - Immunizations Immunizations are current?: Yes PD ED PE NORMAL - Vitals Vital signs reviewed: Yes (He is in A-fib, mildly rapid) - General General: Alert and oriented X 3, Other (Very uncomfortable with deep breathing or talking) - HEENT HEENT: PERRL, EOMI - Neck Neck: Supple, no meningeal sign, No bony TTP - Cardiac Cardiac: Other (Rapid and irregular with systolic murmur) - Respiratory Respiratory: Other (Coarse crackles at the left base) - Abdomen Abdomen: Normal bowel sounds, Soft, Non tender - Back Back: No CVA TTP, No spinal TTP - Derm Derm: Normal color, Warm and dry - Extremities Extremities: Other (2+ pitting pedal edema, improved from the other day per him.) - Neuro Neuro: Alert and oriented X 3, Normal speech Results - Vitals Vitals: Vital Signs - 24 hr 05/27/22 05/27/22 05/27/22 16:22 16:35 17:00 Temperature 36.8 C Heart Rate 124 H 127 H 122 H Respiratory 33 H 27 H 31 H Rate Blood Pressure 112/76 112/88 H 118/79 Blood Pressure [Left] O2 Saturation 100 100 100 05/27/22 05/27/22 05/27/22 17:30 18:00 19:15 Temperature 36.4 C L Heart Rate 117 H 123 H 94 Respiratory 21 21 26 H Rate Blood Pressure 109/93 H 112/83 H 99/78 Blood Pressure 99/78 [Left] O2 Saturation 100 98 100 03/12/23 03/12/23 20:20 20:56 Temperature Heart Rate 92 108 H Respiratory 25 H 25 H Rate Blood Pressure 95/79 90/72 Blood Pressure [Left] O2 Saturation 95 95 Oxygen O2 Source Room air - EKG (time done) 1522 EKG releavant findings:: EKG personally interpreted by author of this note. Relevant findings are: Rate: Rate (enter#) (115) Rhythm: Atrial fibrillation QRS: LVH Ischemia: Normal ST segments - Labs Labs: Laboratory Tests 05/27/22 05/27/22 05/27/22 16:32 16:32 16:32 WBC 22.1 H RBC 4.17 L Hgb 11.3 L Hct 35.7 L MCV 85.6 MCH 27.1 MCHC 31.7 L RDW 15.7 H Plt Count 313 MPV 10.0 Neut # (Auto) Not Reportable Lymph # (Auto) Not Reportable Brule # (Auto) Not Reportable Eos # (Auto) Not Reportable Baso # (Auto) Not Reportable Absolute Nucleated RBC Not Reportable Total Counted 100 Band Neuts % (Manual) 3 Abnorm Lymph % (Manual) 0 Nucleated RBC % Not Reportable Neutrophils # (Manual) 20.3 H Lymphocytes # (Manual) 0.4 L Monocytes # (Manual) 1.3 H Eosinophils # (Manual) 0.0 Basophils # (Manual) 0.0 Differential Comment MANUAL DIFFERENTIAL WBC Morphology 1+ TOXIC GRANULATION Platelet Estimate NORMAL (130-450,000) Platelet Morphology NORMAL APPEARANCE RBC Morph Micro Appear 1+ POLYCHROMASIA Sodium 133 L Potassium 3.2 L Chloride 93 L Carbon Dioxide 27 Anion Gap 13.0 BUN 46 H Creatinine 2.4 H Estimated GFR (MDRD) 27 L Glucose 219 H Lactic Acid Calcium 8.7 Total Bilirubin 1.3 H AST 38 ALT 71 H Alkaline Phosphatase 84 Troponin I High Sens 65.1 H* B-Natriuretic Peptide Total Protein 6.9 Albumin 3.1 L Globulin 3.8 Albumin/Globulin Ratio 0.8 L Lipase 37 SARS-CoV-2 (PCR) 05/27/22 05/27/22 05/27/22 16:32 17:32 17:42 WBC RBC Hgb Hct MCV MCH MCHC RDW Plt Count MPV Neut # (Auto) Lymph # (Auto) Brule # (Auto) Eos # (Auto) Baso # (Auto) Absolute Nucleated RBC Total Counted Band Neuts % (Manual) Abnorm Lymph % (Manual) Nucleated RBC % Neutrophils # (Manual) Lymphocytes # (Manual) Monocytes # (Manual) Eosinophils # (Manual) Basophils # (Manual) Differential Comment WBC Morphology Platelet Estimate Platelet Morphology RBC Morph Micro Appear Sodium Potassium Chloride Carbon Dioxide Anion Gap BUN Creatinine Estimated GFR (MDRD) Glucose Lactic Acid 2.0 Calcium Total Bilirubin AST ALT Alkaline Phosphatase Troponin I High Sens B-Natriuretic Peptide 4303 H Total Protein Albumin Globulin Albumin/Globulin Ratio Lipase SARS-CoV-2 (PCR) NOT DETECTED - Rads (name of study) Single view chest x-ray demonstrates left upper lobe pneumonia and small bilateral pleural effusions. Relevant Findings:: Final report received, EMP independent interpretation of test PD Medical Decision Making - ED course ED course: 77-year-old gentleman with severe aortic valve disease presents with severe left shoulder pain with breathing. Since yesterday over the last 2 days his white count has gone from basically normal to 22,000. His renal function is decreasing and he has an elevated troponin. He is in A-fib with mild RVR. Chest x-ray now showing pneumonia. He is quite ill and given the above issues. Probably go to a tertiary Medical Center with cardiology input. Call was placed to [facility]. But do plan on accepting eventually. After talking to them the expectation is that they will not have a bed tonight patient would like to go there as that is where his prior specialty care is. He received Rocephin and Zithromax after cultures. I presented the case to Dr. Joseph, hospitalist at [facility]. He accepted the patient, but they tell me it will be up to 48 hours before bed availability. Departure - Departure Disposition: 02 Transfer Acute Care Hosp Clinical Impression: Pneumonia, SANCHO (acute kidney injury), Valvular heart disease, Acute exacerbation of congestive heart failure Condition: Critical
[2022-05-27] MEDS ORDERED: cefTRIAXone 1 GM in SODIUM CHLORIDE 0.9% MINIBAG 100 ML IV STA (17:05)
[2022-05-27] MEDS ORDERED: AZITHROMYCIN INJ 500 MG in SODIUM CHLORIDE 0.9% 250 ML IV STA (17:05)
[2022-05-27] MEDS ORDERED: cefTRIAXone 1 GM VIAL ONE (17:28)
[2022-05-27] MEDS ORDERED: ONDANSETRON 4 MG/2 ML VIAL IVP PRN (17:46)
[2022-05-27] MEDS ORDERED: ACETAMINOPHEN 500 MG TABLET PO PRN (17:46)
[2022-05-27] MEDS ORDERED: HYDROmorphone 1 MG/ML CARPUJECT IVP PRN (19:28)
[2022-05-27] MEDS: oxyCODONE 5 MG TABLET PO PRN (19:38)
[2022-05-27] MEDS: ENOXAPARIN 100 MG/ML SYRINGE SUBQ SCH (21:08)
[2022-05-27] MEDS: METOPROLOL TARTRATE 25 MG TABLET PO SCH (21:10)
[2022-05-28 06:38] LABS: BASOPHILS % (AUTO) 0.2 %; HCT - HEMATOCRIT 29.7 % (42.0-52.0); HGB - HEMOGLOBIN 9.3 g/dL (14.0-18.0); LYMPHOCYTES # (AUTO) 0.6 10^3/uL (1.5-3.5); LYMPHOCYTES % (AUTO) 2.8 %; MEAN CORPUSCULAR HEMOGLOBIN 26.8 pg (27.0-31.0); MEAN CORPUSCULAR HGB CONC 31.3 g/dL (32.0-36.0); MEAN CORPUSCULAR VOLUME 85.6 fL (80.0-94.0); MEAN PLATELET VOLUME 10.5 fL (7.4-11.4); MONOCYTES # (AUTO) 1.3 10^3/uL (0.0-1.0); MONOCYTES % (AUTO) 6.6 %; NEUTROPHILS % (AUTO) 89.8 %; PLT - PLATELET COUNT 235 10^3/uL (130-450); RED BLOOD COUNT 3.47 10^6/uL (4.70-6.10); RED CELL DISTRIBUTION WIDTH 15.8 % (12.0-15.0)
[2022-05-28 06:42] LABS: CALCIUM 8.2 mg/dL (8.5-10.3); CREATININE 2.5 mg/dL (0.6-1.2); POTASSIUM 3.1 mmol/L (3.5-5.0)
[2022-05-28] MEDS ORDERED: PANTOPRAZOLE 40 MG TABLET PO SCH (07:00)
[2022-05-28] MEDS ORDERED: cefTRIAXone 1 GM in SODIUM CHLORIDE 0.9% MINIBAG 100 ML IV SCH (09:00)
[2022-05-28] MEDS ORDERED: AZITHROMYCIN INJ 500 MG in SODIUM CHLORIDE 0.9% 250 ML IV SCH (09:00)
[2022-05-28] MEDS: ENOXAPARIN 100 MG/ML SYRINGE SUBQ SCH ×2 (09:14→21:09)
[2022-05-28] MEDS: METOPROLOL TARTRATE 25 MG TABLET PO SCH ×2 (09:15→21:07)
[2022-05-28] MEDS ORDERED: POTASSIUM CHLORIDE 20 MEQ TABLET PO STA (13:38)
[2022-05-28] MEDS ORDERED: TORSEMIDE 20 MG TABLET PO STA (18:18)
--- NOTE | 2022-05-28 18:21 | ED Physician Documentation ---
ED Addendum - Addendum Addendum: 05/28/22 18:20 Subjective, he started to feel more short of breath and would like to r einstitute his torsemide. I had held it yesterday given some low blood pressures, but his blood pressures are better today so we will reinstitute his torsemide. Otherwise he has no complaints other than the food. Objective: 1. Vital signs blood pressure better today, he has been tachypneic in the high 20s for the most part. Oxygen saturations are doing okay and his heart rate is controlled in A-fib. 2. Lab nelson his blood cultures are both preliminarily positive for Streptococcus pneumoniae. His white count has improved from 22,000 down to 20,000. Chemistry panel notable for continued worsening of renal function. Hypokalemia at 3.1 repleted orally and I also scheduled potassium supplementation since we are reinstituting his torsemide. 3. Physical exam: Mildly labored breathing but speaking in full sentences. Heart rate is irregular but controlled. He has 2+ pitting pedal edema. Lungs are crackly on the left. He is in good spirits though. Assessment/Plan: 1. Pneumonia with bacteremia with Streptococcus pneumoniae. On azithromycin and Rocephin, will tailor antibiotics once sensitivities are done 2. CHF with valvular disease, waiting on [facility] to have bed availability
[2022-05-28] MEDS: ALBUTEROL NEB 2.5 MG/3 ML INH PRN (19:15)
--- NOTE | 2022-05-28 19:42 | XRAY Report ---
PROCEDURE: Chest 1 View X-Ray INDICATIONS: dyspnea TECHNIQUE: One view of the chest was acquired. COMPARISON: None. FINDINGS: Surgical changes and devices: None. Lungs and pleura: No pleural effusions or pneumothorax. Large airspace opacities are seen in left up per lung field and right lower lung field. Mediastinum: Mediastinal contours appear normal. Heart size is normal. Bones and chest wall: No suspicious bony lesions. Overlying soft tissues appear unremarkable. IMPRESSION: Finding is concerning for left upper lobe and right lower lobe infiltrates. Underlying malignant proc ess cannot be excluded. Follow-up until resolution is recommended. No pleural effusion or pneumothora x. Reviewed by: David Rucker MD on 05/28/2022 7:41 PM PDT Approved by: David Rucker MD on 05/28/2022 7:41 PM PDT Station ID: [id number]
[2022-05-28] MEDS: oxyCODONE 5 MG TABLET PO PRN (20:38)
[2022-05-29] MEDS: ALBUTEROL NEB 2.5 MG/3 ML INH PRN
[2022-05-29 01:35] VITALS: BP 95/74
[2022-05-29] MEDS ORDERED: TORSEMIDE 20 MG TABLET PO SCH ×2 (06:00→09:00)
[2022-05-29] MEDS ORDERED: POTASSIUM CHLORIDE 20 MEQ TABLET PO SCH (09:00)
== END 2022-05-29 02:00 | disposition short-term general hospital (02) ==
LOC: ED 16:06
DX: J18.9 Pneumonia, unspecified organism (principal); I11.0 Hypertensive heart disease with heart failure; I50.9 Heart failure, unspecified; N17.9 Acute kidney failure, unspecified; I38 Endocarditis, valve unspecified; Z20.822 Contact with and (suspected) exposure to COVID-19
CPT/HCPCS: 36415; 71045; 80048; 80053; 83605; 83690; 83880; 84484; 85025; 87040; 87077; 87150; 87181; 87635; 93005; 94640; 96365; 96366; 96367; 96368; 96375; 99285; A9270; J1170; J1650

== ENCOUNTER 2022-05-29 01:57 | Outpatient (CLI) | payer MEDICARE | END 2022-05-29 01:58 | disposition short-term general hospital (02) | LOC: EMS 01:57 | PROVIDERS: ATTEND Emergency Medicine | DX: J18.9 Pneumonia, unspecified organism (principal); N17.9 Acute kidney failure, unspecified; I50.9 Heart failure, unspecified | CPT/HCPCS: A0425; A0428 ==

== ENCOUNTER 2022-08-03 15:30 | Emergency (ER) | payer MEDICARE ==
--- NOTE | 2022-08-03 16:47 | ED Physician Documentation ---
PD HPI LOWER EXT INJURY - Stated complaint Stated Complaint: LEG PX - Chief complaint Chief Complaint: Ext Problem - History obtained from History obtained from: Patient - History of Present Illness PD HPI LOW EXT INJURY LOCATION: Both, Lower leg, Ankle Type of injury: No: Fall, Twist, Blunt / blow Timing - duration: Weeks (4-5) Timing - details: Gradual onset, Still present Improved by: Rest Worsened by: Moving, Palpating Associated symptoms: Swelling, Discolored (He states he developed areas of redness with an small erosions of the skin causing pockmarks that were weeping of clear fluid. Markedly tender. This develop throughout the front of the legs and some to the calves gradually over several weeks.). No: Weakness, Numbness Contributing factors: Anticoagulated Similar symptoms before: Has not had sx before Recently seen: Surgery (He had TAVR surgery 4 days ago. He had talked to his primary care and also food safety field specialist about the leg pains over the last 2 to 3 weeks. No particular treatment offered per patient. He contacted his cardiology service today as the pains were worse. Referred to the ER for concern of DVT.) Review of Systems Constitutional: denies: Fever, Chills Cardiac: denies: Chest pain / pressure, Palpitations Respiratory: denies: Dyspnea Neurologic: denies: Focal weakness, Numbness PD PAST MEDICAL HISTORY - Past Medical History Cardiovascular: Hypertension, Valve disorder Respiratory: None Neuro: None Endocrine/Autoimmune: None : Other - Past Surgical History Past Surgical History: Yes Cardiovascular: AAA - Present Medications Home Medications: Ambulatory Orders Medication Instructions Recorded Confirmed Apixaban [Eliquis] 5 mg PO BID 05/25/22 05/27/22 Aspirin [[place] Aspirin] 81 mg PO DAILY PM 05/25/22 05/27/22 Calcium Carbonate/Vitamin D3 1 tab PO DAILY 05/25/22 05/27/22 [Calcium 500 mg Chewable Tablet] Docusate Sodium 100Mg Capsule 100 mg PO BID 05/25/22 05/27/22 [Colace 100Mg Capsule] Dulaglutide [Trulicity] 1.5 mg SUBQ 05/25/22 Latanoprost/Pf [Latanoprost 0.005% 1 drops EACHEYE QPM 05/25/22 05/27/22 Eye Drop] Lifitegrast [Xiidra] 05/25/22 Pantoprazole Sodium [Protonix] 40 mg PO BID 05/25/22 05/27/22 Ranolazine [Ranexa] 1 tab PO BID 05/25/22 05/27/22 Rosuvastatin Calcium [Crestor] 10 mg PO DAILY 05/25/22 05/27/22 Brimonidine 0.15% Ophth Drops 1 drops EACHEYE BID 05/27/22 05/27/22 [Alphagan P 0.15% Ophth Drops] Ezetimibe [Zetia] 10 mg PO DAILY 05/27/22 05/27/22 Insulin Glargine,Hum.rec.anlog 14 unit SUBQ DAILY 05/27/22 05/27/22 [Toujeo Solostar] Metoprolol Succinate [Toprol Xl] 25 mg PO DAILY 05/27/22 05/27/22 Torsemide 20 mg PO DAILY 05/27/22 05/27/22 HYDROcod/ACETAM 5/325 [Americus 5/325] 1 - 2 tab PO Q6H PRN #15 tablet 08/03/22 predniSONE [Deltasone] 20 mg PO [id number] #21 tab 08/03/22 - Allergies Allergies/Adverse Reactions: Allergies Allergy/AdvReac Type Severity Reaction Status Date / Time No Known Drug Allergies Allergy Verified 08/03/22 15:58 - Social History Does the pt smoke?: No Smoking Status: Never smoker - Immunizations Immunizations are current?: Yes PD ED PE NORMAL - Vitals Vital signs reviewed: Yes - General General: Alert and oriented X 3, Well developed/nourished, Other (appears in pain due to legs.) - Derm Derm: Normal color, Warm and dry - Extremities Extremities: Other (Both lower legs for between the knees and ankles show general edema with some irregularity of the surface consistent with mild inflammatory or ischemic type areas of the skin. There is some purpuric areas of it as well.) - Neuro Neuro: Alert and oriented X 3, No motor deficit, No sensory deficit Results - Vitals Vitals: Vital Signs - 24 hr 08/03/22 08/03/22 15:55 19:33 Heart Rate 75 72 Respiratory 16 16 Rate Blood Pressure 131/80 H 145/77 H O2 Saturation 100 100 Oxygen O2 Source Room air - Labs Labs: Laboratory Tests 08/03/22 08/03/2223 17:44 17:44 17:44 WBC 6.2 RBC 3.44 L Hgb 8.2 L Hct 27.4 L MCV 79.7 L MCH 23.8 L MCHC 29.9 L RDW 19.9 H Plt Count 171 MPV 9.3 Neut # (Auto) 4.5 Lymph # (Auto) 0.9 L Mcmullen # (Auto) 0.6 Eos # (Auto) 0.1 Baso # (Auto) 0.0 Absolute Nucleated RBC 0.00 Nucleated RBC % 0.0 ESR 80 H Sodium 135 Potassium 3.7 Chloride 98 L Carbon Dioxide 25 Anion Gap 12.0 BUN 23 H Creatinine 2.0 H Estimated GFR (MDRD) 33 L Glucose 152 H Calcium 8.7 Total Creatine Kinase 88 C-Reactive Protein 2.4 H PD Medical Decision Making - ED course Complexity details: reviewed results, considered differential (this has appearance, progression and symptoms more likely a vasculitis or immunologic reaction. Does not seem infectious. Pattern would not be c/w shingles. Will get U/S per PMD request, though seems less likely DVT. Eval ESR/CRP and consider steroids in additon to pain meds. He is driving home.), d/w patient ED course: He has had progressive initially slow onset development of regional area of anterior tibial fibula skin lesions with mild swelling and local bruise type appearance with then blistering and weeping of clear fluid. No purulence. This has been progressive through the anterior shins on both sides. He initially talked to his providers about it several weeks ago but they did not address it according to the patient. He has normal sensation in the toes and feet. The areas locally are quite tender and have gotten even more so the past week. Departure - Departure Disposition: Home, Self Care Clinical Impression: Rash and nonspecific skin eruption Edema Qualifiers: Edema type: unspecified Qualified Code(s): R60.9 - Edema, unspecified Condition: Good Prescriptions: predniSONE [Deltasone] 20 mg PO [id number] #21 tab HYDROcod/ACETAM 5/325 [Americus 5/325] 1 - 2 tab PO Q6H PRN #15 tablet PRN Reason: Pain Comments: I sent your prescription electronically to [facility] in [place]. Doppler ultrasounds of both legs were negative. This looks like a inflammatory process of your shins, hopefully the prednisone steroid will be very helpful. Call your doctor to arrange a follow-up appointment, make the next available appointment. In the interim, return anytime if worse or if new symptoms develop. I am prescribing a short course of narcotic pain medication for you. These are potentially dangerous and addictive medications that should be used carefully. These medications may constipate you. Take an [id number] stool softener (docusate) twice daily with plenty of water while taking these medications. If you go 24 hours without a bowel movement, take [id number] miralax, per package instructions. Do not drink or drive while taking these medications. If you received narcotic or sedating medications while in the emergency department, do not drive for 24 hours. Store this medication in a safe, secure place and out of reach of children. It is a violation of federal law to give or sell this medication to another person or to use in a manner other than prescribed. The ED will not refill narcotic prescriptions, including prescriptions lost or stolen. To dispose of unwanted medications: 1. [facility] [address] in [place] has a medication drop box. They accept prescription medications (in pill form) Saturday through Saturday 9:00 a.m. to 5:00 p.m. 2. [facility] accepts prescription medications (in pill form only) for disposal year round. Call for more information. 3. Contact the [facility] for the next [facility] sponsored prescription drug collection event. , [phone], or [phone]; Note that many narcotic pain relievers also contain Tylenol/acetaminophen. Please ensure that your total dose of acetaminophen from all sources does not exceed 3 g (3000 mg) per day. Discharge Date/Time: 08/03/22 19:33
[2022-08-03 17:52] LABS: BASOPHILS % (AUTO) 0.6 %; EOSINOPHILS # (AUTO) 0.1 10^3/uL (0.0-0.7); EOSINOPHILS % (AUTO) 2.3 %; HCT - HEMATOCRIT 27.4 % (42.0-52.0); HGB - HEMOGLOBIN 8.2 g/dL (14.0-18.0); LYMPHOCYTES # (AUTO) 0.9 10^3/uL (1.5-3.5); LYMPHOCYTES % (AUTO) 14.9 %; MEAN CORPUSCULAR HEMOGLOBIN 23.8 pg (27.0-31.0); MEAN CORPUSCULAR HGB CONC 29.9 g/dL (32.0-36.0); MEAN CORPUSCULAR VOLUME 79.7 fL (80.0-94.0); MEAN PLATELET VOLUME 9.3 fL (7.4-11.4); MONOCYTES # (AUTO) 0.6 10^3/uL (0.0-1.0); MONOCYTES % (AUTO) 9.1 %; NEUTROPHILS # (AUTO) 4.5 10^3/uL (1.5-6.6); NEUTROPHILS % (AUTO) 72.6 %; PLT - PLATELET COUNT 171 10^3/uL (130-450); RED BLOOD COUNT 3.44 10^6/uL (4.70-6.10); RED CELL DISTRIBUTION WIDTH 19.9 % (12.0-15.0); WHITE BLOOD COUNT 6.2 x10^3/uL (4.8-10.8)
[2022-08-03] MEDS ORDERED: ACETAMINOPHEN 325 MG TABLET PO STA (18:17)
[2022-08-03] MEDS ORDERED: KETOROLAC 30 MG/ML VIAL IM STA (18:17)
[2022-08-03 18:18] LABS: CALCIUM 8.7 mg/dL (8.5-10.3); CRP - C-REACTIVE PROTEIN 2.4 mg/dL (0-1.0); POTASSIUM 3.7 mmol/L (3.5-5.0)
[2022-08-03] MEDS ORDERED: HYDROcod/ACET 5/325 Prepack 4 PO STA (19:23)
[2022-08-03] MEDS ORDERED: predniSONE 20 MG TABLET PO STA (19:23)
--- NOTE | 2022-08-03 19:23 | ED Physician Documentation ---
ED Addendum - Addendum Addendum: 08/03/22 19:[address] Nicole at shift change. He is a few days out from a TAVR but is actually had 5 weeks of this issue with his legs which he feels like has been ignored by his physicians. He has pitting and pain of the shins. He was sent in for an evaluation for his arterial and venous systems which were negative/normal. This looks like an inflammatory process and he is being sent home with the following prescriptions 1. Hydrocodone/APAP 5/325 1-2 tabs every 6 as needed pain #15 no refills 2. Prednisone 60 mg a day for 3 days, then 40 mg a day for 2 days, then 20 mg a day for 2 days. Disposition: Discharged home Condition: Stable
[2022-08-03 19:34] VITALS: BP 145/77
--- NOTE | 2022-08-03 19:47 | Ultrasound Report ---
PROCEDURE: Duplex Ext Veins Bilateral INDICATIONS: N Dm TECHNIQUE: Real-time imaging, as well as color and pulse Doppler interrogation, were performed of the deep veins of both legs from the inguinal ligament to the popliteal fossa. COMPARISON: None FINDINGS: The deep veins are normally compressible, and free of intraluminal thrombus. Color and pu lse Doppler demonstrate normal phasic intravascular flow. There is normal augmentation response to d istal compression maneuver. IMPRESSION: No deep venous thrombosis. Reviewed by: Kat Ontiveros MD on 08/03/2022 7:46 PM PDT Approved by: Kat Ontiveros MD on 08/03/2022 7:46 PM PDT Station ID: [id number]
--- NOTE | 2022-08-03 19:49 | Ultrasound Report ---
PROCEDURE: Ankle Brachial Index INDICATIONS: Post TAVR leg swelling TECHNIQUE: Ankle-brachial indices were obtained bilaterally and recorded. COMPARISONS: None. FINDINGS: Right ankle brachial index (YAYA): 1.04 Left ankle brachial index (YAYA): 1.06 Posterior tibial artery and dorsalis pedis on the right have velocities of 42.3 cm/s and 24.[address] respectively with monophasic/biphasic flow. Velocities of the same vessels on the right measures 6 5.4 cm and 20.2 cm respectively with monophasic/biphasic flow. Subcutaneous edema is present. Healing potential: Ankle pressures >55 mm Hg in non-diabetics and >80 mm Hg in diabetics are likely to achieve primary h ealing of ischemic foot ulcers. Toe pressures >30 mm Hg are likely to achieve primary healing of ischemic foot ulcers, toe or transme tatarsal amputations. IMPRESSION: ABIs are within normal limits. Flows identified within posterior tibial and dorsalis pedis arteries bilaterally. Reviewed by: Kat Ontiveros MD on 08/03/2022 7:48 PM PDT Approved by: Kat Ontiveros MD on 08/03/2022 7:48 PM PDT Station ID: [id number]
== END 2022-08-03 19:33 | disposition home or self-care (01) ==
LOC: ED 15:30
DX: R21 Rash and other nonspecific skin eruption (principal); R60.0 Localized edema
CPT/HCPCS: 36415; 80048; 82550; 85025; 85651; 86140; 93922; 93970; 96372; 99283; 99284; A9270; J7512